=== PATIENT | male | born 1985 ===

== ENCOUNTER 2017-05-25 23:23 | Emergency (ER) | payer SELFPAY ==
[2017-05-25 23:51] VITALS: BP 137/83; PULSE 80; RESP 18; TEMP 100.1; O2SAT 99
--- NOTE | 2017-05-26 01:03 | ED PDOC ---
HPI: Back Time Seen by Provider: 05/26/17 00:12 Chief Complaint (Nursing): Back Pain Chief Complaint (Provider): Back and chest pain History Per: Patient History/Exam Limitations: no limitations Onset/Duration Of Symptoms: Days (3) Current Symptoms Are (Timing): Still Present Quality Of Discomfort: "Pain" Severity: Moderate Previous Symptoms: None Associated Symptoms: None Exacerbating Factor(s): Other (palpation) Additional History Per: Patient Additional Complaint(s): 31 y/o male complaining of left sided thoracic back and chest pain for the last three days that presented after lifting heavy objects at work. Pain is worse with palpation. No numbness, weakness, incontinence, or other complaint. He has been using Motrin with minimal relief. He reports that he was seen by [facility] just after the pain presented and did have labs and XR that were normal - patient brought the results for review. Past Medical History Vital Signs: Last Vital Signs Temp 100.1 F H 05/25/17 23:49 Pulse 80 05/25/17 23:49 Resp 18 05/25/17 23:49 BP 137/83 05/25/17 23:49 Pulse Ox 99 05/25/17 23:49 - Medical History PMH: No Chronic Diseases - Surgical History Surgical History: No Surg Hx - Family History Family History: States: Unknown Family Hx - Social History Alcohol: Occasional - Home Medications Home Medications: Ambulatory Orders Medication Instructions Recorded Ibuprofen [Motrin] 600 mg PO Q6 PRN #20 tab 11/03/15 Ondansetron Hydrochloride 4 mg PO Q6 PRN #12 tab 11/03/15 Cyclobenzaprine [Cyclobenzaprine 10 mg PO TID PRN #15 tab 05/26/17 HCl] - Allergies Allergies/Adverse Reactions: Allergies Allergy/AdvReac Type Severity Reaction Status Date / Time No Known Allergies Allergy Verified 11/03/15 12:14 Review of Systems ROS Statement: Except As Marked, All Systems Reviewed And Found Negative Cardiovascular: Positive for: Chest Pain Musculoskeletal: Positive for: Back Pain Physical Exam - Physical Exam Appears: Positive for: Well, No Acute Distress Skin: Positive for: Normal Color, Warm, Dry Eye Exam: Positive for: Normal appearance ENT: Positive for: Normal ENT Inspection Neck: Positive for: Normal, Painless ROM, Supple Cardiovascular/Chest: Positive for: Regular Rate, Rhythm Respiratory: Positive for: Normal Breath Sounds. Negative for: Rales, Rhonchi, Wheezing Gastrointestinal/Abdominal: Positive for: Normal Exam, Bowel Sounds, Soft. Negative for: Tenderness Back: Positive for: Other (tenderness with palpation of left paraspinal muscles at T5 and posterior chest wall. ) Extremity: Positive for: Normal ROM Neurologic/Psych: Positive for: Alert, Oriented - ECG O2 Sat by Pulse Oximetry: 99 (RA) Pulse Ox Interpretation: Normal Medical Decision Making Medical Decision Making: Impression: 31 y/o male with costochondritic pain Plan: - Toradol 15 mg IM Patient reevaluated and reports that his pain is improved. He is medically stable for discharge and will be given a prescription for Flexeril. Patient instructed to follow up in clinic for evaluation. All questions answered. Scribe Attestation Documented by Niki Charles acting as a scribe for Willie Doyle Provider Attestation: All medical record entries made by the Scribe were at my direction and personally dictated by me. I have reviewed the chart and agree that the record accurately reflects my personal performance of the history, physical exam, medical decision making, and the department course for this patient. I have also personally directed, reviewed, and agree with the discharge instructions and disposition. Disposition - Clinical Impression Clinical Impression: Costochondritis, acute - Patient ED Disposition Is Patient to be Admitted: No Doctor Will See Patient In The: Office Counseled Patient/Family Regarding: Diagnosis, Need For Followup, Rx Given - Disposition Disposition: Routine/Home Disposition Time: 01:00 Condition: STABLE Prescriptions: Cyclobenzaprine [Cyclobenzaprine HCl] 10 mg PO TID PRN #15 tab PRN Reason: back/chest pain Instructions: Costochondritis (ED) Print Language: UKRAINIAN
== END 2017-05-26 01:09 | disposition home or self-care (01) ==
LOC: H.ER 23:23
DX: M94.0 Chondrocostal junction syndrome [Tietze] (principal); M54.9 Dorsalgia, unspecified
CPT/HCPCS: 96372; 99282; J1885

== ENCOUNTER 2017-08-01 00:10 | Emergency (ER) | payer SELFPAY ==
[2017-08-01 00:17] VITALS: BP 130/76; PULSE 90; RESP 16; TEMP 98.8; O2SAT 98
--- NOTE | 2017-08-01 00:42 | ED PDOC ---
HPI: Chest Pain Time Seen by Provider: 08/01/17 00:16 Chief Complaint (Nursing): Male Genitourinary Chief Complaint (Provider): chest pain History Per: Patient History/Exam Limitations: no limitations Onset/Duration Of Symptoms: Hrs (2) Current Symptoms Are (Timing): Still Present Quality: Sharp Exacerbating Factors: Turning, Movement Additional History Per: Patient Additional Complaint(s): 31 y/o male presents with left-sided chest pain x 2 hours. Pain worse to touch , and with deep breaths. Denies fever, nausea/vomiting, cough, shortness of breath, palpitations, abdominal pain, dysuria/hematuria. Past Medical History Reviewed: Historical Data, Nursing Documentation, Vital Signs Vital Signs: Last Vital Signs Temp 98.8 F 08/01/17 00:16 Pulse 90 08/01/17 00:16 Resp 16 08/01/17 00:16 BP 130/76 08/01/17 00:16 Pulse Ox 98 08/01/17 02:04 - Medical History PMH: No Chronic Diseases - Surgical History Surgical History: No Surg Hx - Family History Family History: States: Unknown Family Hx - Home Medications Home Medications: Ambulatory Orders Medication Instructions Recorded Ibuprofen [Motrin] 600 mg PO Q6 PRN #20 tab 11/03/15 Ondansetron Hydrochloride 4 mg PO Q6 PRN #12 tab 11/03/15 Cyclobenzaprine [Cyclobenzaprine 10 mg PO TID PRN #15 tab 05/26/17 HCl] Naproxen [Naprosyn] 500 mg PO Q12 PRN #20 tablet 08/01/17 - Allergies Allergies/Adverse Reactions: Allergies Allergy/AdvReac Type Severity Reaction Status Date / Time No Known Allergies Allergy Verified 08/01/17 00:15 JOCELINE Risk Score for UA/NSTEMI - JOCELINE Risk Score Age > 64: NO 3 or more CAD Risk Factors: NO Known CAD (Stenosis greater than 50%): NO Aspirin use in past 7 days: NO Severe Angina: NO EKG ST changes greater than 0.5mm: NO Positive Cardiac Marker: NO JOCELINE Score: 0 Risk %: 5% Review of Systems ROS Statement: Except As Marked, All Systems Reviewed And Found Negative Cardiovascular: Positive for: Chest Pain Physical Exam - Reviewed Nursing Documentation Reviewed: Yes Vital Signs Reviewed: Yes - Physical Exam Appears: Positive for: Well, Non-toxic, No Acute Distress Head Exam: Positive for: ATRAUMATIC, NORMAL INSPECTION, NORMOCEPHALIC Skin: Positive for: Normal Color Eye Exam: Positive for: Normal appearance ENT: Positive for: Normal ENT Inspection Cardiovascular/Chest: Positive for: Regular Rate, Rhythm. Negative for: Chest Non Tender (tender to palpate left anterior chest wall intercostal spaces. No flail chest, ecchymosis, swelling noted) Respiratory: Positive for: Normal Breath Sounds Gastrointestinal/Abdominal: Positive for: Normal Exam Back: Negative for: L CVA Tenderness, R CVA Tenderness Extremity: Positive for: Normal ROM Neurologic/Psych: Positive for: Alert, Oriented - Laboratory Results Result Diagrams: 08/01/17 01:29 08/01/17 01:29 - ECG ECG: Positive for: Viewed By Me (reviewed by ED attending) ECG Rhythm: Positive for: Sinus Rhythm O2 Sat by Pulse Oximetry: 98 Pulse Ox Interpretation: Normal - Radiology X-Ray: Viewed By Me X-Ray Interpretation: No Acute Disease - Progress ED Course And Treament: labs, ekg, chest xray, Toradol IM Patient educated on findings, discharged with rx naproxen. Advised follow up PMD 2-3 days. Return to ED for worsening/concerning symptoms. Disposition - Clinical Impression Clinical Impression: Chest wall pain - Patient ED Disposition Is Patient to be Admitted: No Counseled Patient/Family Regarding: Studies Performed, Diagnosis, Need For Followup, Rx Given - Disposition Referrals: [facility] [Outside] Disposition: Routine/Home Disposition Time: 02:03 Condition: IMPROVED Prescriptions: Naproxen [Naprosyn] 500 mg PO Q12 PRN #20 tablet PRN Reason: Pain, Moderate (4-7) Instructions: Chest Wall Pain (ED) Print Language: JAMAICAN
[2017-08-01 01:33] LABS: BASO # 0.1 K/uL (0.0-0.2); BASO % 1.6 % (0.0-2.0); EOS # 0.1 K/uL (0.0-0.7); EOS % 1.5 % (0.0-4.0); HEMATOCRIT 42.4 % (35.0-51.0); LYMPH # 1.7 K/uL (1.0-4.3); LYMPH % 45.9 % (20.0-40.0); MEAN CELL VOLUME 88.7 fl (80.0-94.0); MEAN CORPUSCULAR HGB CONC 33.8 g/dL (33.0-37.0); MEAN PLATELET VOLUME 8.3 fl (7.2-11.7); MONO # 0.3 K/uL (0.0-0.8); NEUT # 1.6 K/uL (1.8-7.0); NRBC % 0.2 % (0.0-0.0); RED CELL DISTRIBUTION WIDTH 13.1 % (11.5-14.5); WHITE BLOOD COUNT 3.7 K/uL (4.8-10.8)
[2017-08-01 01:43] LABS: BLOOD UREA NITROGEN 9 mg/dl (9-20); CALCIUM 8.9 mg/dL (8.4-10.2); CARBON DIOXIDE 29 mmol/L (22-30); CHLORIDE 97 mmol/L (98-107); GFR AFRICAN-AMERICAN > 60; GLUCOSE,RANDOM 98 mg/dL (75-110); SODIUM 139 mmol/l (132-148)
[2017-08-01 01:57] LABS: POTASSIUM 4.9 MMOL/L (3.6-5.0)
--- NOTE | 2017-08-01 08:10 | CARD ---
APPROVED REPORT EKG Measurement Heart [id number] <Conclusion> Normal sinus rhythm Consider LVH (?? Normal variant) Normal ECG
--- NOTE | 2017-08-01 09:58 | RAD ---
HISTORY: chest pain COMPARISON: No prior. TECHNIQUE: Chest PA and lateral FINDINGS: LUNGS: No active pulmonary disease. PLEURA: No significant pleural effusion identified. No pneumothorax apparent. CARDIOVASCULAR: Normal. OSSEOUS STRUCTURES: No significant abnormalities. VISUALIZED UPPER ABDOMEN: Normal. OTHER FINDINGS: None. IMPRESSION: No active disease.
== END 2017-08-01 03:21 | disposition home or self-care (01) ==
LOC: H.ER 00:10
DX: R07.9 Chest pain, unspecified (principal)
CPT/HCPCS: 71020; 80048; 84484; 85025; 93005; 96372; 99282; J1885

== ENCOUNTER 2018-07-11 11:13 | Emergency (ER) | payer OTHER ==
[2018-07-11 11:15] VITALS: BMI 22.6
[2018-07-11 11:16] VITALS: BP 130/77; PULSE 88; RESP 17; TEMP 98.7; O2SAT 98
[2018-07-11] MEDS ORDERED: Thiamine 100 mg/ml Inj IM ONE (12:00)
[2018-07-11 12:12] LABS: HEMOGLOBIN 14.6 g/dL (12.0-18.0); MEAN CELL VOLUME 87.2 fl (80.0-94.0); MEAN CORPUSCULAR HEMOGLOBIN 30.6 pg (27.0-31.0); MEAN CORPUSCULAR HGB CONC 35.1 g/dL (33.0-37.0); RBC 4.77 Mil/uL (4.40-5.90); RED CELL DISTRIBUTION WIDTH 13.2 % (11.5-14.5)
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
[2018-07-11 12:29] LABS: ALB/GLOB RATIO 1.2 (1.0-2.1); ALBUMIN 4.7 g/dL (3.5-5.0); ALT/SGPT 100 U/L (21-72); AST/SGOT 148 U/L (17-59); BLOOD UREA NITROGEN 23 mg/dl (9-20); CALCIUM 9.6 mg/dL (8.4-10.2); GFR NON-AFRICAN AMERICAN > 60
--- NOTE | 2018-07-11 12:50 | CT ---
Date of service: 07/11/2018 PROCEDURE: CT HEAD WITHOUT CONTRAST. HISTORY: Dizziness, headache, blurred vision COMPARISON: None available. TECHNIQUE: Axial computed tomography images were obtained through the head/brain without intravenous contrast. Radiation dose: Total exam DLP = 752.71 mGy-cm. This CT exam was performed using one or more of the following dose reduction techniques: Automated exposure control, adjustment of the mA and/or kV according to patient size, and/or use of iterative reconstruction technique. FINDINGS: HEMORRHAGE: No intracranial hemorrhage. BRAIN: Shah-white matter differentiation is preserved. There is no mass, mass effect or abnormal extra-axial fluid collection. There is no territorial infarction. The midline sagittal structures are normal. VENTRICLES: The ventricles are normal in size, shape and configuration. CALVARIUM: The skull base and calvarium are normal. PARANASAL SINUSES: Predominantly clear. MASTOID AIR CELLS: Predominantly clear. OTHER FINDINGS: None. IMPRESSION: No acute intracranial abnormality.
[2018-07-11 14:36] LABS: BARBITURATES, UR NEGATIVE (NEGATIVE); BENZODIAZEPINES, UR NEGATIVE (NEGATIVE); OPIATES, UR NEGATIVE (NEGATIVE); PHENCYCLIDINE, UR NEGATIVE (NEGATIVE)
--- NOTE | 2018-07-11 21:36 | CARD ---
APPROVED REPORT Date of service: 07/11/2018 EKG Measurement Heart [id number] <Conclusion> Normal sinus rhythm Moderate voltage criteria for LVH, may be normal variant Borderline ECG
== END 2018-07-11 14:44 | disposition home or self-care (01) ==
LOC: H.ER 11:13 → MERGE 11:13 → H.ER 14:44
DX: R42 Dizziness and giddiness (principal); R51 Headache; R07.89 Other chest pain; K70.9 Alcoholic liver disease, unspecified
CPT/HCPCS: 70450; 80053; 80320; 80324; 80345; 80346; 80349; 80353; 80358; 80361; 83992; 84484; 85027; 86592; 87390; 93005; 96372; 96374; 99282; J1885; J3411

== ENCOUNTER 2019-03-30 08:15 | Emergency (ER) | payer SELFPAY ==
[2019-03-30 08:21] VITALS: RESP 16; O2SAT 97
[2019-03-30 08:22] VITALS: BMI 23.3
[2019-03-30] MEDS ORDERED: Sodium Chloride 0.9% 1,000 ML IV STA (08:49)
--- NOTE | 2019-03-30 09:21 | ED PDOC ---
HPI: Abdomen Time Seen by Provider: 03/30/19 08:25 Chief Complaint (Nursing): Abdominal Pain Chief Complaint (Provider): Abdominal Pain History Per: Patient History/Exam Limitations: no limitations Onset/Duration Of Symptoms: Days (2) Current Symptoms Are (Timing): Still Present Location Of Pain/Discomfort: Epigastric Associated Symptoms: Nausea, Vomiting. denies: Fever, Diarrhea Additional Complaint(s): 33 year old male presents to the ED for an evaluation of abdominal pain with nausea and six episodes non-bilious and non-boody vomiting onset for 2 days. Patient reports on drinking excessive alcohol yesterday. Otherwise, he denies fever, chills, chest pain, back pain, cough, shortness of breath, congestion, di arrhea, dysuria, hematuria, incontinence, headache, dizziness, weakness or numbness. Patient did not take any pain medication prior to arrival. PMD: no family provider Past Medical History Reviewed: Historical Data, Nursing Documentation, Vital Signs Vital Signs: Last Vital Signs Temp 98.8 F 03/30/19 08:21 Pulse 105 H 03/30/19 08:21 Resp 16 03/30/19 08:21 BP 137/88 03/30/19 08:21 Pulse Ox 97 03/30/19 08:21 Primary Care Provider: FAMILY PROVIDER,NO - Medical History PMH: No Chronic Diseases - Family History Family History: States: Unknown Family Hx - Home Medications Home Medications: Ambulatory Orders Medication Instructions Recorded Ibuprofen [Motrin] 600 mg PO Q6 PRN #20 tab 11/03/15 Ondansetron Hydrochloride 4 mg PO Q6 PRN #12 tab 11/03/15 Cyclobenzaprine [Cyclobenzaprine 10 mg PO TID PRN #15 tab 05/26/17 HCl] Naproxen [Naprosyn] 500 mg PO Q12 PRN #20 tablet 08/01/17 Famotidine [Pepcid] 40 mg PO DAILY #15 tab 06/20/18 Famotidine [Pepcid] 20 mg PO DAILY PRN #6 tab 03/30/19 Ondansetron ODT [Zofran ODT] 4 mg PO TID PRN #8 odt 03/30/19 - Allergies Allergies/Adverse Reactions: Allergies Allergy/AdvReac Type Severity Reaction Status Date / Time No Known Allergies Allergy Verified 03/30/19 08:46 Review of Systems ROS Statement: Except As Marked, All Systems Reviewed And Found Negative Constitutional: Negative for: Fever, Chills Cardiovascular: Negative for: Chest Pain Respiratory: Negative for: Cough, Shortness of Breath Gastrointestinal: Positive for: Nausea, Vomiting, Abdominal Pain. Negative for: Diarrhea Genitourinary Male: Negative for: Dysuria, Frequency, Incontinence Musculoskeletal: Negative for: Back Pain Neurological: Negative for: Weakness, Numbness, Headache, Dizziness Physical Exam - Reviewed Nursing Documentation Reviewed: Yes Vital Signs Reviewed: Yes - Physical Exam Appears: Positive for: Non-toxic, No Acute Distress Head Exam: Positive for: ATRAUMATIC, NORMAL INSPECTION, NORMOCEPHALIC Skin: Positive for: Normal Color, Warm, Dry. Negative for: Rash Eye Exam: Positive for: EOMI, Normal appearance, PERRL ENT: Positive for: Normal ENT Inspection Neck: Positive for: Normal, Painless ROM, Supple. Negative for: Decreased ROM Cardiovascular/Chest: Positive for: Regular Rate, Rhythm. Negative for: Murmur Respiratory: Positive for: Normal Breath Sounds. Negative for: Decreased Breath Sounds, Wheezing, Respiratory Distress Gastrointestinal/Abdominal: Positive for: Tenderness (mild epigastric ), Other (no upper or lower abdominal pain or flank pain ). Negative for: Guarding, Rebound Back: Positive for: Normal Inspection. Negative for: L CVA Tenderness, R CVA Tenderness Extremity: Positive for: Normal ROM. Negative for: Tenderness, Pedal Edema, Deformity Neurological/Psych: Positive for: Awake, Alert, Normal Tone, Oriented (x3). Negative for: Motor/Sensory Deficits - Laboratory Results Result Diagrams: 03/30/19 09:20 03/30/19 09:20 Interpretation Of Abn Labs: no acute - ECG O2 Sat by Pulse Oximetry: 97 (RA) Pulse Ox Interpretation: Normal - Progress ED Course And Treament: 1225: Stable. AAOx3. Tolerated PO. Fu with pcp. Pain free. Medical Decision Making Medical Decision Making: Time: 848 Plan: Alcohol serum CMP Lipase CBC w/ differential PTT Prothrombin time Normal saline 1000 mls/hr Pepcid 20mg Toradol 15mg Zofran 4mg --- Scribe Attestation: Documented by Maikel Arias, acting as a scribe for Chato Espinal MD Provider Scribe Attestation: All medical record entries made by the Scribe were at my direction and personally dictated by me. I have reviewed the chart and agree that the record accurately reflects my personal performance of the history, physical exam, medical decision making, and the department course for this patient. I have also personally directed, reviewed, and agree with the discharge instructions and disposition Disposition - Clinical Impression Clinical Impression: Abdominal pain, Alcohol abuse - Patient ED Disposition Is Patient to be Admitted: No Counseled Patient/Family Regarding: Studies Performed, Diagnosis, Need For Followup, Rx Given - Disposition Referrals: [facility] [Outside] - 03/31/19 Disposition: Routine/Home Disposition Time: 09:30 Condition: STABLE Additional Instructions: Return if not better in 3 days. Prescriptions: Famotidine [Pepcid] 20 mg PO DAILY PRN #6 tab PRN Reason: Pain Ondansetron ODT [Zofran ODT] 4 mg PO TID PRN #8 odt PRN Reason: Nausea/Vomiting Instructions: Alcohol Use - When Is Drinking a Problem?, Stomach Ache and Stomach Upset Print Language: ALBANIAN
[2019-03-30 10:29] LABS: BASO % 0.3 % (0.0-2.0); EOS % 0.2 % (0.0-4.0); HEMOGLOBIN 15.9 g/dL (12.0-18.0); LYMPH # 1.6 K/uL (1.0-4.3); MEAN CELL VOLUME 85.9 fl (80.0-94.0); MEAN CORPUSCULAR HEMOGLOBIN 30.4 pg (27.0-31.0); MEAN CORPUSCULAR HGB CONC 35.4 g/dL (33.0-37.0); MEAN PLATELET VOLUME 8.4 fl (7.2-11.7); MONO # 0.6 K/uL (0.0-0.8); MONO % 8.5 % (0.0-10.0); NEUT # 5.2 K/uL (1.8-7.0); NRBC % 0.2 % (0.0-0.0); RBC 5.22 Mil/uL (4.40-5.90); RED CELL DISTRIBUTION WIDTH 13.1 % (11.5-14.5); WHITE BLOOD COUNT 7.5 K/uL (4.8-10.8)
[2019-03-30 10:42] LABS: ALB/GLOB RATIO 1.3 (1.0-2.1); ALBUMIN 4.9 g/dL (3.5-5.0); ALT/SGPT 55 U/L (21-72); AST/SGOT 59 U/L (17-59); BLOOD UREA NITROGEN 19 mg/dl (9-20); CALCIUM 8.9 mg/dL (8.4-10.2); GFR NON-AFRICAN AMERICAN > 60; LIPASE 58 U/L (23-300)
[2019-03-30 11:38] LABS: INR 1.1; PROTHROMBIN TIME 12.7 Seconds (9.8-13.1)
[2019-03-30 12:43] VITALS: BP 132/68; PULSE 66; TEMP 98.6
== END 2019-03-30 12:45 | disposition home or self-care (01) ==
LOC: H.ER 08:15
DX: R10.9 Unspecified abdominal pain (principal); F10.10 Alcohol abuse, uncomplicated; Z79.899 Other long term (current) drug therapy
CPT/HCPCS: 80053; 80320; 83690; 85025; 85610; 85730; 96361; 96374; 96375; 99283; J1885; J2405; J7030